=== PATIENT | female | born 1995 | race Caucasian/White ===

== ENCOUNTER 2021-11-09 16:39 | Inpatient (IN) | payer OTHER ==
[~2021-11-09] VITALS: Ht 162.6 cm; Wt 102.7 kg
[2021-11-09] VITALS (30 sets, daily range): BP systolic 113–180; BP diastolic 56–99
[2021-11-09] MEDS ORDERED: LIDOCAINE 1% MDV 20ML VIAL INFIL PRN (17:10)
[2021-11-09] MEDS ORDERED: METHYLERGONOVINE MALEATE 0.2 MG/ML VIAL (J2210) IM PRN (17:10)
[2021-11-09] MEDS ORDERED: CARBOPROST TROMETHAMINE 250 MCG/ML AMP IM PRN (17:10)
[2021-11-09] MEDS ORDERED: OXYTOCIN DRIP 30 UNITS in IV 1 EA IV PRN (17:10)
[2021-11-09] MEDS ORDERED: TRANEXAMIC ACID INJection 1,000 MG in NS 100 ML IV PRN (17:10)
[2021-11-09] MEDS ORDERED: HOME MED LIST COMPLETE! XX SCH (17:15)
[2021-11-09] MEDS ORDERED: OXYTOCIN 30 UNITS IN 0.9% NaCl 500ML IV BAG (J2590) As Ordered ONE (17:17)
[2021-11-09] MEDS: LR 1,000 ML IV SCH ×2 (17:23→18:08)
[2021-11-09 17:28] LABS: HEMATOCRIT 32.9 % (36.0-47.0); HEMOGLOBIN 11.2 g/dl (12.0-15.5); MEAN CORPUSCULAR HEMOGLOBIN 31.2 pg (27.0-33.0); MEAN CORPUSCULAR VOLUME 91.6 fl (80.0-96.0); PLATELET COUNT, AUTOMATED 253 10^3/uL (150-450); RED BLOOD COUNT 3.59 10^6/uL (4.00-5.40); WHITE BLOOD COUNT 10.2 10^3/uL (4.0-10.0)
[2021-11-09] MEDS ORDERED: FENTANYL 2MCG/ML ROPIVACAINE 0.2% IN 0.9% NACL 100ML IVBAG As Ordered ONE (17:43)
[2021-11-09] MEDS ORDERED: FENTANYL/ROPIVACAINE/NACL BAG 100 ML EPIDURAL SCH (18:35)
[2021-11-09] MEDS ORDERED: EPIDURAL/PCA KEYS XX PRN (18:35)
[2021-11-09] MEDS ORDERED: LACTATED RINGER'S 1000 ML IV PRN (18:35)
[2021-11-09] MEDS ORDERED: NALOXONE INJ 0.4MG/1ML VIAL (J2310 PER 1MG) IV PRN (18:35)
[2021-11-09] MEDS ORDERED: ONDANSETRON 4MG/2ML VIAL IV PRN (18:35)
[2021-11-09] MEDS ORDERED: EPIDURAL COMMENT XX SCH (18:35)
[2021-11-09] MEDS ORDERED: REFRIGERATOR IV KEYS XX PRN (18:35)
[2021-11-09] MEDS ORDERED: diphenhydrAMINE 50MG/ML VIAL (J1200) IV PRN (18:35)
[2021-11-09] MEDS ORDERED: ePHEDrine SULFATE 25 MG/5 ML(5MG/ML) SYRINGE IV PRN (18:35)
[2021-11-09 22:40] LABS: CORD GAS ABE V -5.7; CORD GAS HCO3 V 20.6 MEQ/L; CORD GAS O2 SAT V 64.5 %; CORD GAS PCO2 V 43.3 mmHg; CORD GAS PH V 7.296 UNITS; CORD GAS PO2 V 26.9 mmHg; CORD GAS SBC V 19.1 MEQ/L
[2021-11-09 22:43] LABS: CORD GAS ABE A -4.4; CORD GAS O2 SAT A 64.5 %; CORD GAS PCO2 A 45.6 mmHg; CORD GAS PH A 7.302 UNITS; CORD GAS PO2 A 26.6 mmHg; CORD GAS SBC A 20.1 MEQ/L; CORD GAS TCO2 A 23.4 MEQ/L
[2021-11-09] MEDS ORDERED: IBUPROFEN 800 MG TAB PO PRN (22:55)
[2021-11-09] MEDS ORDERED: IBUPROFEN 600MG TAB PO PRN (22:55)
[2021-11-09] MEDS ORDERED: RHOGAM 300 MCG (1500 IU) INJ (J2790) IM SCH (22:55)
[2021-11-09] MEDS ORDERED: ACETAMINOPHEN 500 MG TAB PO PRN (22:55)
[2021-11-09] MEDS ORDERED: MEASLES,MUMPS,RUBELLA VACCINE INJ (MMR-II) (90707) SC SCH (22:55)
[2021-11-09] MEDS ORDERED: METHYLERGONOVINE MALEATE 0.2 MG TAB PO PRN (22:55)
[2021-11-09] MEDS ORDERED: ACETAMINOPHEN TAB 650MG DOSE (2X325MG) PO PRN (22:55)
[2021-11-09] MEDS ORDERED: MOM 30ML SUSPENSION UDC PO PRN (22:55)
[2021-11-09] MEDS ORDERED: DIBUCAINE 1% OINTMENT 30GM TOP PRN (22:55)
[2021-11-09] MEDS ORDERED: OXYTOCIN DRIP 30 UNITS in IV 1 EA IV SCH (22:55)
[2021-11-09] MEDS ORDERED: DOCUSATE SODIUM 100MG CAPSULE PO PRN (22:55)
[2021-11-10 06:00] VITALS: BP 118/70
[2021-11-10] MEDS: PRENATAL VITAMINS CHEWABLE TABLET PO SCH (07:49)
[2021-11-10 18:03] VITALS: BP 125/65
[2021-11-11 06:00] VITALS: BP 113/68
[2021-11-11] MEDS: PRENATAL VITAMINS CHEWABLE TABLET PO SCH (08:56)
[2021-11-11] MEDS ORDERED: COLA100C5 PO (10:29)
[2021-11-11] MEDS ORDERED: ACET-683 PO (10:29)
[2021-11-11] MEDS ORDERED: IBUP-1022 PO (10:29)
== END 2021-11-11 13:25 | disposition home or self-care (01) | DRG 807 ==
LOC: M LDO 16:39 → M LDI 16:47 → M OBS 11-10 01:00
PROVIDERS: ADMIT Obstetrics & Gynecology; ATTEND Obstetrics & Gynecology
PROC: 10E0XZZ Delivery of Products of Conception, External Approach (ICD-10-PCS; principal; 2021-11-09)
DX: O48.0 Post-term pregnancy (principal); Z37.0 Single live birth; Z3A.40 40 weeks gestation of pregnancy; Z88.2 Allergy status to sulfonamides; Z88.8 Allergy status to other drugs, medicaments and biological substances